=== PATIENT | female | born 1960 | race Hispanic/Latino ===

== ENCOUNTER 2019-01-09 14:25 | Emergency (ER) | payer BC, OTHER ==
[2019-01-09] MEDS ORDERED: HYDROCODONE/ACETAMINOPHEN 5/325 MG TAB ONE (15:01)
[2019-01-09] MEDS ORDERED: MORPHINE SULFATE 4 MG/1ML SYG ONE (16:14)
[2019-01-09] MEDS ORDERED: MORPHINE SULFATE 2 MG/ML 1ML SYG ONE (16:15)
== END 2019-01-09 16:44 | disposition home or self-care (01) ==
LOC: EDH 14:25
DX: S40.012A Contusion of left shoulder, initial encounter (principal); I10 Essential (primary) hypertension; E78.00 Pure hypercholesterolemia, unspecified; W20.8XXA Other cause of strike by thrown, projected or falling object, initial encounter; Y93.89 Activity, other specified; Y92.512 Supermarket, store or market as the place of occurrence of the external cause; Y99.8 Other external cause status
CPT/HCPCS: 72100; 73010; 96372; 99284; J2270